=== PATIENT | male | born 1965 | race Caucasian/White ===

== ENCOUNTER 2020-11-19 15:52 | Emergency (ER) | payer MEDICAID ==
[~2020-11-19] VITALS: Ht 167.6 cm; Wt 86.2 kg
[2020-11-19 15:52] VITALS: BP 150/100
--- NOTE | 2020-11-19 15:52 | NUR ---
SOO CASTRO AND PLACED IN BED 4 BY EMS.
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
--- NOTE | 2020-11-19 16:31 | NUR ---
DR VALE AT BEDSIDE
[2020-11-19] MEDS ORDERED: NAPR-54 PO (16:41)
[2020-11-19] MEDS ORDERED: ACET-10509 PO (16:41)
[2020-11-19] MEDS ORDERED: KETOROLAC 60 MG/2 ML VIAL IM ONE (16:45)
[2020-11-19] MEDS ORDERED: ACETAMINOPHEN EXTRA STRENGTH 500 MG TAB PO ONE (16:45)
--- NOTE | 2020-11-19 17:22 | NUR ---
Patient discharged with v/s stable. Written and verbal after care instructions given and explained. Patient alert, oriented and verbalized understanding of instructions. Ambulatory with steady gait. All questions addressed prior to discharge. ID band removed. Patient advised to follow up with PMD. Rx of NAPROXEN AND ACETAMINOPHEN given. Patient educated on indication of medication including possible reaction and side effects. Opportunity to ask questions provided and answered.
[2020-11-19 17:23] VITALS: BP 150/100
== END 2020-11-19 17:22 | disposition home or self-care (01) ==
LOC: MED 15:52
DX: M54.2 Cervicalgia (principal); M54.5 Low back pain; Z79.1 Long term (current) use of non-steroidal anti-inflammatories (NSAID); V89.2XXA Person injured in unspecified motor-vehicle accident, traffic, initial encounter; Y93.89 Activity, other specified; Y92.410 Unspecified street and highway as the place of occurrence of the external cause; Y99.8 Other external cause status
CPT/HCPCS: 96372; 99283; J1885